=== PATIENT | male | born 1940 | race Two or more races ===

== ENCOUNTER 2019-06-07 16:43 | Inpatient (IN) | payer BC, MEDICAID ==
[~2019-06-07] VITALS: Ht 165.1 cm; Wt 74.8 kg
[2019-06-07] MEDS ORDERED: ALBUTEROL SULF 2.5 MG/0.5ML(0.5%) NEB SOLN HHN ONE (17:00)
[2019-06-07] MEDS ORDERED: IPRATROPIUM BROM 0.5 MG/2.5ML INH SOL HHN ONE (17:00)
[2019-06-07] MEDS ORDERED: methylPREDNISolone SOD SUCC 125 MG/2 ML VL IV ONE (17:00)
[2019-06-07 18:54] LABS: Basophils # (auto) 0 10 ^3/uL (0-0.2); Basophils % (auto) 0.4 % (0.0-2.0); Eosinophils # (auto) 0.2 10 ^3/uL (0-0.8); Eosinophils % (auto) 2.3 % (0.0-7.0); Hematocrit 43.5 % (41.0-53.0); Hemoglobin 14.8 g/dL (13.5-17.5); Lymphocytes # (auto) 3.3 10 ^3/uL (0.4-5.4); Lymphocytes % (auto) 34.8 % (10.0-50.0); Mean Corpuscular Hemoglobin 30.3 pg (28.0-32.0); Mean Corpuscular Volume 89.1 fL (80.0-100.0); Monocytes # (auto) 0.6 10 ^3/uL (0-1.3); Monocytes % (auto) 5.9 % (0.0-12.0); Neutrophils # (auto) 5.4 10 ^3/uL (1.6-8.6); Neutrophils % (auto) 56.6 % (37.0-80.0); Nucleated Red Blood Cells % 0.1 %; Platelet Count (auto) 220 10^3/uL (140-450); Red Blood Cells 4.88 10^6/uL (4.5-5.90); Red Cell Distribution Width 15.1 % (11.8-14.3); White Blood Cell 9.5 10^3/uL (4.4-10.8)
[2019-06-07] MEDS ORDERED: FUROSEMIDE 40 MG/4 ML VIAL IV ONE (19:00)
[2019-06-07] MEDS ORDERED: NITROGLYCERIN 2% OINT 1GM PKG TD ONE (19:00)
[2019-06-07] MEDS ORDERED: CARVEDILOL 3.125 MG TAB PO ONE (19:00)
[2019-06-07] MEDS ORDERED: ENALAPRILAT 1.25 MG/ML-1ML VIAL IV ONE (19:00)
[2019-06-07 19:08] LABS: Alanine Aminotransferase 17 U/L (16-61); Albumin 3.4 g/dL (3.4-5.0); Anion Gap 6 (5-15); Aspartate Aminotransferase 14 U/L (15-37); BUN/Creatinine Ratio 13.7; Blood Urea Nitrogen 13 mg/dL (7-18); Calcium 9.2 mg/dL (8.5-10.1); Carbon Dioxide 27 mmol/L (21-32); Chloride 105 mmol/L (98-107); GFR African American 99 mL/min; GFR Non-African American 82 mL/min; Glucose 101 mg/dL (74-106); Potassium 3.6 mmol/L (3.5-5.1); Sodium 138 mmol/L (136-145)
[2019-06-07 19:14] LABS: Lactic Acid w/Reflex 2.3 mmol/L (0.4-2.0)
[2019-06-07 19:16] LABS: Alkaline Phosphatase 115 U/L (45-117)
[2019-06-07 19:17] LABS: Total Protein 7.6 g/dL (6.4-8.2)
[2019-06-07] MEDS ORDERED: DEXTROSE (50%) 50ML SYRG IV PRN ×2 (20:15)
[2019-06-07] MEDS ORDERED: NITROGLYCERIN 0.4 MG SL TAB SL PRN (20:15)
[2019-06-07] MEDS ORDERED: PROMETHAZINE HCL 25 MG/ML 1ML IV PRN (20:15)
[2019-06-07] MEDS ORDERED: LACTULOSE 20Gm/30ML SOLN PO PRN (20:15)
[2019-06-07] MEDS ORDERED: ALBUTEROL SULF 2.5 MG/0.5ML(0.5%) NEB SOLN NEB PRN (20:15)
[2019-06-07] MEDS ORDERED: MORPHINE SULF INJ 2 MG/ML SYRINGE 1ML IV PRN (20:15)
[2019-06-07 20:32] VITALS: BP 148/70
[2019-06-07] MEDS ORDERED: IOHEXOL 350 MG/ML 100ML IJ ONE (20:37)
[2019-06-07] MEDS: ACCU-CHEK COMFORT CURVE STRIP VI SCH (22:00)
[2019-06-07] MEDS: InsuLIN REG 1unit/0.01ml Soln (100units/ml) SC SCH (22:00)
[2019-06-07 22:17] LABS: Urine Bacteria MOD /hpf (None Seen); Urine Blood Negative /uL (Negative); Urine Specific Gravity 1.009 (1.001-1.035); Urine WBC 256 /hpf (0 - 3)
[2019-06-07] MEDS: methylPREDNISolone SOD SUCC 40 MG/ML VL IV SCH (22:23)
[2019-06-07] MEDS: DOXYCYCLINE 100MG/250ML 250 ML IV SCH (22:24)
[2019-06-07] MEDS: METOPROLOL TARTRATE 25 MG TAB PO SCH (22:35)
[2019-06-07] MEDS: ATORVASTATIN 20 MG TAB PO SCH (22:36)
[2019-06-07] MEDS: ENOXAPARIN SOD 80 MG/0.8ML SYRINGE SC SCH (22:36)
[2019-06-08] MEDS: IPRATROPIUM BROM 0.5 MG/2.5ML INH SOL NEB SCH ×4 (00:20→18:30)
[2019-06-08] MEDS: ALBUTEROL SULF 2.5 MG/0.5ML(0.5%) NEB SOLN NEB SCH ×4 (00:20→18:30)
--- NOTE | 2019-06-08 00:22 | NUR ---
RTN OTE PT WAS SEEN BY RT FOR SCHEDULED HHN TX IN THE ER. PT TOLERATES WELL VIA MOUTHPIECE. NO ADVERSE REACTION NOTED. CONT ORDERED Addendum: 06/08/19 at 0023 by Carmina Thornton RT Amended: Links added.
[2019-06-08 03:00] LABS: Basophils # (auto) 0.1 10 ^3/uL (0-0.2); Basophils % (auto) 0.7 % (0.0-2.0); Eosinophils # (auto) 0 10 ^3/uL (0-0.8); Eosinophils % (auto) 0.1 % (0.0-7.0); Hemoglobin 14.5 g/dL (13.5-17.5); Lymphocytes # (auto) 0.7 10 ^3/uL (0.4-5.4); Lymphocytes % (auto) 8.5 % (10.0-50.0); Mean Corpuscular Hemoglobin 29.9 pg (28.0-32.0); Mean Corpuscular Hgb Conc. 33.7 g/dL (32.0-36.0); Mean Corpuscular Volume 88.7 fL (80.0-100.0); Monocytes # (auto) 0.1 10 ^3/uL (0-1.3); Monocytes % (auto) 0.7 % (0.0-12.0); Neutrophils # (auto) 7.4 10 ^3/uL (1.6-8.6); Nucleated Red Blood Cells % 0.1 %; Platelet Count (auto) 242 10^3/uL (140-450); Red Blood Cells 4.84 10^6/uL (4.5-5.90); Red Cell Distribution Width 14.9 % (11.8-14.3); White Blood Cell 8.2 10^3/uL (4.4-10.8)
[2019-06-08 03:17] LABS: Albumin 3.3 g/dL (3.4-5.0); Calcium 9.1 mg/dL (8.5-10.1); Potassium 4.3 mmol/L (3.5-5.1)
[2019-06-08 03:22] LABS: Total Protein 7.8 g/dL (6.4-8.2)
[2019-06-08] MEDS: ACCU-CHEK COMFORT CURVE STRIP VI SCH ×4 (07:53→22:30)
[2019-06-08] MEDS: InsuLIN REG 1unit/0.01ml Soln (100units/ml) SC SCH ×4 (07:58→22:00)
[2019-06-08] MEDS: methylPREDNISolone SOD SUCC 40 MG/ML VL IV SCH (09:28)
[2019-06-08] MEDS: DOXYCYCLINE 100MG/250ML 250 ML IV SCH ×2 (09:31→22:35)
[2019-06-08] MEDS: METOPROLOL TARTRATE 25 MG TAB PO SCH ×2 (10:16→22:29)
[2019-06-08] MEDS: ASPirin 81 mg TAB PO SCH (10:16)
[2019-06-08] MEDS: ENOXAPARIN SOD 80 MG/0.8ML SYRINGE SC SCH ×2 (10:18→22:30)
[2019-06-08] MEDS: ENALAPRIL MALEATE 10 MG TAB PO SCH (10:18)
[2019-06-08] MEDS ORDERED: CARVEDILOL 3.125 MG TAB PO ONE (11:15)
[2019-06-08] MEDS ORDERED: amLODIPine BESYLATE 5 MG TAB PO ONE (11:15)
[2019-06-08] MEDS ORDERED: ATORVASTATIN 20 MG TAB PO ONE (13:15)
[2019-06-08] MEDS ORDERED: ASPirin 81 mg TAB PO ONE (13:15)
[2019-06-08] MEDS ORDERED: CLOPIDOGREL BISULFATE 75 MG TAB PO ONE ×3 (13:15→16:00)
--- NOTE | 2019-06-08 14:50 | NUR ---
PATIENT ARRIVED ON UNIT. NO S/S OF DISTRESS NOTED AT THIS TIME. PATIENT ON TELE BOX 61. PATIENT DENIES ANY PAIN. PATIENT IN BED INSTRUCTED ON USE OF CALL LIGHT AND HOSPITAL POLICY. PATIENT HAS PATENT LWRIST 20 GAUGE. UPDATED ON POC. ALL QUESTIONS ANSWERED. BED IN LOWEST LOCKED POSITION WITH CALL LIGHT WITHIN REACH.
[2019-06-08 15:14] VITALS: BP 162/93
[2019-06-08] MEDS ORDERED: METF-370 PO (15:26)
--- NOTE | 2019-06-08 16:30 | NUR ---
SPOKE TO Ludmila TORRES IN CARDIOLOGY REGARDING TROPONIN LEVELS. STATED HE WOULD SEE THE PATIENT.
[2019-06-08 17:00] VITALS: BP 126/69
--- NOTE | 2019-06-08 20:20 | NUR ---
Opening Shift Note Pt is resting in bed with eyes closed and resp rate is even and unlabored. Will continue to monitor pt and when awake will discuss POC. Bed is low, wheels are locked, and call light is with in reach.
[2019-06-08 21:51] VITALS: BP 120/54
[2019-06-08] MEDS ORDERED: CARVEDILOL 3.125 MG TAB PO SCH (22:00)
--- NOTE | 2019-06-08 22:25 | NUR ---
Pt is awake and alert x4 and POC discussed with pt and pt verbalizes understanding. Pt also up OOB to BR and amb with cane and noted to have a limp but is steady. Pt given urinal at bedside for future use prn and verbalizes understanding of its use. Call light is with in reach and pt instructed to call prn or with any questions or concerns.
[2019-06-08] MEDS: ATORVASTATIN 20 MG TAB PO SCH (22:28)
[2019-06-09] VITALS (7 sets, daily range): BP systolic 115–154; BP diastolic 52–94
[2019-06-09] MEDS: ALBUTEROL SULF 2.5 MG/0.5ML(0.5%) NEB SOLN NEB SCH ×5 (00:15→23:46)
[2019-06-09] MEDS: IPRATROPIUM BROM 0.5 MG/2.5ML INH SOL NEB SCH ×5 (00:15→23:46)
--- NOTE | 2019-06-09 02:15 | NUR ---
Dr Laughlin called at this time to discuss pt POC and new orders received at this time. See written orders for, troponin levels q 8hrs x3, ( troponin levels until they peak) ,Adenosine Cardiolite stress test 06/11/19 and NPO after midnight 06/11/19, and FACUNDO MELGAR.
[2019-06-09 03:30] LABS: BUN/Creatinine Ratio 29.1; Calcium 8.8 mg/dL (8.5-10.1); Potassium 4.5 mmol/L (3.5-5.1)
[2019-06-09] MEDS: InsuLIN REG 1unit/0.01ml Soln (100units/ml) SC SCH ×4 (06:31→22:00)
[2019-06-09] MEDS: ACCU-CHEK COMFORT CURVE STRIP VI SCH ×4 (06:33→23:08)
[2019-06-09 07:20] LABS: Basophils # (auto) 0 10 ^3/uL (0-0.2); Basophils % (auto) 0.1 % (0.0-2.0); Eosinophils # (auto) 0 10 ^3/uL (0-0.8); Hematocrit 39.8 % (41.0-53.0); Hemoglobin 13.3 g/dL (13.5-17.5); Lymphocytes # (auto) 1.8 10 ^3/uL (0.4-5.4); Lymphocytes % (auto) 11.2 % (10.0-50.0); Mean Corpuscular Hemoglobin 29.7 pg (28.0-32.0); Mean Corpuscular Hgb Conc. 33.4 g/dL (32.0-36.0); Mean Corpuscular Volume 89.1 fL (80.0-100.0); Monocytes # (auto) 0.7 10 ^3/uL (0-1.3); Monocytes % (auto) 4.6 % (0.0-12.0); Neutrophils # (auto) 13.5 10 ^3/uL (1.6-8.6); Neutrophils % (auto) 84.1 % (37.0-80.0); Nucleated Red Blood Cells % 0.1 %; Platelet Count (auto) 222 10^3/uL (140-450); Red Blood Cells 4.46 10^6/uL (4.5-5.90); Red Cell Distribution Width 15.2 % (11.8-14.3)
--- NOTE | 2019-06-09 07:30 | NUR ---
Opening Shift Note Assumed care of patient, awake and alert. No S/S of distress/SOB or pain. Instructed on POC and to call for assist PRN, will continue to monitor for changes Q1hr and PRN. Bed locked in lowest position with two side rails up and call light in reach.
[2019-06-09] MEDS: DOXYCYCLINE 100MG/250ML 250 ML IV SCH (08:03)
[2019-06-09] MEDS: METOPROLOL TARTRATE 25 MG TAB PO SCH ×2 (10:12→23:06)
[2019-06-09] MEDS: ASPirin 81 mg TAB PO SCH (10:12)
[2019-06-09] MEDS: methylPREDNISolone SOD SUCC 40 MG/ML VL IV SCH (10:12)
[2019-06-09] MEDS: ENOXAPARIN SOD 80 MG/0.8ML SYRINGE SC SCH ×2 (10:12→23:08)
[2019-06-09] MEDS: amLODIPine BESYLATE 5 MG TAB PO SCH (10:13)
[2019-06-09] MEDS: ENALAPRIL MALEATE 10 MG TAB PO SCH (10:13)
--- NOTE | 2019-06-09 12:45 | NUR ---
DR MORENO ROUNDING
[2019-06-09] MEDS: NICOTINE 21MG/24 HR TOPICAL PATCH TD SCH (14:44)
--- NOTE | 2019-06-09 15:00 | NUR ---
URINE SAMPLE SENT ORDERED.
[2019-06-09] MEDS: ACETAMINOPHEN 500 MG TAB PO PRN (17:01)
--- NOTE | 2019-06-09 19:35 | NUR ---
Opening Shift Note Pt is sitting up in bed receiving a Neb tx at this time and RT is also at bedside. Pt denies any pain or SOB and no s/s of any distress noted at this time. POC discussed with pt and pt verbalizes understanding. Bed is low, wheels are locked, and call light is with in reach.
[2019-06-09] MEDS: ATORVASTATIN 20 MG TAB PO SCH (23:05)
[2019-06-09] MEDS: DOXYCYCLINE 100 MG TAB/CAP PO SCH (23:07)
[2019-06-10 05:38] VITALS: BP 151/87
[2019-06-10] MEDS: IPRATROPIUM BROM 0.5 MG/2.5ML INH SOL NEB SCH ×3 (06:08→19:14)
[2019-06-10] MEDS: ALBUTEROL SULF 2.5 MG/0.5ML(0.5%) NEB SOLN NEB SCH ×3 (06:08→19:14)
[2019-06-10] MEDS: InsuLIN REG 1unit/0.01ml Soln (100units/ml) SC SCH ×4 (06:14→22:16)
[2019-06-10] MEDS: ACCU-CHEK COMFORT CURVE STRIP VI SCH ×4 (06:15→22:17)
[2019-06-10 08:00] VITALS: BP 133/75
[2019-06-10 09:00] VITALS: BP 133/75
[2019-06-10] MEDS: methylPREDNISolone SOD SUCC 40 MG/ML VL IV SCH (10:04)
[2019-06-10] MEDS: ENOXAPARIN SOD 80 MG/0.8ML SYRINGE SC SCH ×2 (10:04→22:13)
[2019-06-10] MEDS: NICOTINE 21MG/24 HR TOPICAL PATCH TD SCH (10:04)
[2019-06-10] MEDS: amLODIPine BESYLATE 5 MG TAB PO SCH (10:05)
[2019-06-10] MEDS: ENALAPRIL MALEATE 10 MG TAB PO SCH (10:05)
[2019-06-10] MEDS: ASPirin 81 mg TAB PO SCH (10:05)
[2019-06-10] MEDS: METOPROLOL TARTRATE 25 MG TAB PO SCH ×2 (10:05→22:00)
[2019-06-10] MEDS: DOXYCYCLINE 100 MG TAB/CAP PO SCH ×2 (10:05→22:13)
[2019-06-10 13:00] VITALS: BP 143/75
[2019-06-10 17:00] VITALS: BP 149/72
--- NOTE | 2019-06-10 19:20 | NUR ---
OPENING NOTE- NOC SHIFT PATIENT IS ALERT AND ORIENTED X4, ANSWERS IN COMPLETE SENTENCES AND MAKES APPROPRIATE EYE CONTACT. PATIENT'S PRIMARY LANGUAGE IS SCOTTISH. PATIENT IN BED, BED IS LOCKED AT LOWEST POSITION, BED RAILS UP X2 AND HEAD OF BED IS UP >30 DEGREES. BEDSIDE TABLE WITHIN REACH, CALL LIGHT WITHIN REACH. DISCUSSED POC WITH PATIENT AND INSTRUCTED PATIENT TO CALL PRN; PATIENT VERBALIZED UNDERSTANDING. WILL CONTINUE TO MONITOR Q1H AND PRN. PATIENT HAS PERSONAL CANE AT BEDSIDE.
[2019-06-10 22:00] VITALS: BP 138/81
[2019-06-10] MEDS: ATORVASTATIN 20 MG TAB PO SCH (22:14)
--- NOTE | 2019-06-10 22:15 | NUR ---
BLOOD PRESSURE MED HELD FOR CARDIOLITE STRESS TEST SCHEDULED FOR 06/10, MADE PATIENT AWARE.
[2019-06-11] VITALS (8 sets, daily range): BP systolic 138–163; BP diastolic 64–94
--- NOTE | 2019-06-11 | NUR ---
ROUNDS PATIENT RESTING EYES CLOSED. BREATHS ARE EVEN AND UNLABORED. NO S/SX OF DISTRESS, SOB OR PAIN.
[2019-06-11] MEDS: IPRATROPIUM BROM 0.5 MG/2.5ML INH SOL NEB SCH ×4 (00:44→18:23)
[2019-06-11] MEDS: ALBUTEROL SULF 2.5 MG/0.5ML(0.5%) NEB SOLN NEB SCH ×4 (00:44→18:23)
--- NOTE | 2019-06-11 02:00 | NUR ---
ROUNDS PATIENT COMFORTABLE IN BED. NO S/SX OF DISTRESS OR SOB. PATIENT DENIES PAIN AT THIS TIME.
[2019-06-11 06:02] LABS: Basophils # (auto) 0 10 ^3/uL (0-0.2); Basophils % (auto) 0.2 % (0.0-2.0); Eosinophils # (auto) 0 10 ^3/uL (0-0.8); Eosinophils % (auto) 0.1 % (0.0-7.0); Hematocrit 40.2 % (41.0-53.0); Hemoglobin 13.9 g/dL (13.5-17.5); Lymphocytes # (auto) 1.7 10 ^3/uL (0.4-5.4); Lymphocytes % (auto) 20.2 % (10.0-50.0); Mean Corpuscular Hemoglobin 30.7 pg (28.0-32.0); Mean Corpuscular Hgb Conc. 34.5 g/dL (32.0-36.0); Mean Corpuscular Volume 88.9 fL (80.0-100.0); Monocytes # (auto) 0.5 10 ^3/uL (0-1.3); Monocytes % (auto) 6.2 % (0.0-12.0); Neutrophils # (auto) 6.1 10 ^3/uL (1.6-8.6); Neutrophils % (auto) 73.3 % (37.0-80.0); Nucleated Red Blood Cells % 0.1 %; Platelet Count (auto) 200 10^3/uL (140-450); Red Blood Cells 4.52 10^6/uL (4.5-5.90); White Blood Cell 8.4 10^3/uL (4.4-10.8)
[2019-06-11 06:34] LABS: BUN/Creatinine Ratio 30.1; Calcium 9.1 mg/dL (8.5-10.1); Potassium 3.8 mmol/L (3.5-5.1)
[2019-06-11 06:54] LABS: Free T4 (Free Thyroxine) 0.6 ng/dL (0.89-1.76)
[2019-06-11] MEDS: InsuLIN REG 1unit/0.01ml Soln (100units/ml) SC SCH ×4 (07:00→22:34)
[2019-06-11] MEDS: ACCU-CHEK COMFORT CURVE STRIP VI SCH ×4 (07:04→22:35)
[2019-06-11] MEDS ORDERED: ADENOSINE 63 MG in GIVE UN-DILUTED 0 ML IV STA (08:21)
[2019-06-11] MEDS: ENOXAPARIN SOD 80 MG/0.8ML SYRINGE SC SCH ×2 (10:47→22:35)
[2019-06-11] MEDS: methylPREDNISolone SOD SUCC 40 MG/ML VL IV SCH (10:47)
[2019-06-11] MEDS: DOXYCYCLINE 100 MG TAB/CAP PO SCH ×2 (10:48→22:34)
[2019-06-11] MEDS: amLODIPine BESYLATE 5 MG TAB PO SCH (10:48)
[2019-06-11] MEDS: METOPROLOL TARTRATE 25 MG TAB PO SCH ×2 (10:48→22:36)
[2019-06-11] MEDS: NICOTINE 21MG/24 HR TOPICAL PATCH TD SCH (10:48)
[2019-06-11] MEDS: ENALAPRIL MALEATE 10 MG TAB PO SCH (10:49)
[2019-06-11] MEDS: ASPirin 81 mg TAB PO SCH (10:50)
--- NOTE | 2019-06-11 11:55 | NUR ---
DR SIGRID LEONG
--- NOTE | 2019-06-11 13:05 | NUR ---
DR LELIA LEONG. CAROTID DUPLEX ORDERS NO INTERVENTIONS AT THIS TIME.
--- NOTE | 2019-06-11 14:00 | NUR ---
CHECKED BP ON BOTH EXTREMITIES PER DR ROWELL LEFT ARM 111/58 HR 79 MAP 80 RIGHT ARM 133/71 HR 79 MAP 89
--- NOTE | 2019-06-11 16:10 | NUR ---
REMOVED O2 FROM PATIENT PER DR MATTA REQUEST. PATIENT SATURATION ON RA 94-95% NO SIGNS AND SYMPTOMS OF DISTRESS NOTED. O2 PROVIDED AT BEDSIDE WITH HUMIDIFIER PATIENT C/O DRY NOSE.
[2019-06-11] MEDS: ATORVASTATIN 20 MG TAB PO SCH (22:34)
[2019-06-12] MEDS: ALBUTEROL SULF 2.5 MG/0.5ML(0.5%) NEB SOLN NEB SCH ×4 (00:04→18:42)
[2019-06-12] MEDS: IPRATROPIUM BROM 0.5 MG/2.5ML INH SOL NEB SCH ×4 (00:04→18:43)
[2019-06-12] MEDS: ACETAMINOPHEN 500 MG TAB PO PRN ×2 (00:05→06:49)
[2019-06-12 05:00] VITALS: BP 156/85
[2019-06-12] MEDS: ACCU-CHEK COMFORT CURVE STRIP VI SCH ×4 (06:47→22:06)
[2019-06-12] MEDS: InsuLIN REG 1unit/0.01ml Soln (100units/ml) SC SCH ×4 (06:47→22:08)
[2019-06-12 08:00] VITALS: BP 139/74
--- NOTE | 2019-06-12 08:55 | NUR ---
FOOD AND NUTRITION SERVICES SUPERVISOR MILKA JARQUIN AT BEDSIDE UPDATING PATIENT ON POC. PATIENT VERBALIZED UNDERSTANDING.
[2019-06-12] MEDS: ENOXAPARIN SOD 80 MG/0.8ML SYRINGE SC SCH ×2 (10:01→22:06)
[2019-06-12] MEDS: amLODIPine BESYLATE 5 MG TAB PO SCH (10:02)
[2019-06-12] MEDS: ASPirin 81 mg TAB PO SCH (10:02)
[2019-06-12] MEDS: METOPROLOL TARTRATE 25 MG TAB PO SCH ×2 (10:02→22:05)
[2019-06-12] MEDS: NICOTINE 21MG/24 HR TOPICAL PATCH TD SCH (10:02)
[2019-06-12] MEDS: methylPREDNISolone SOD SUCC 40 MG/ML VL IV SCH (10:02)
[2019-06-12] MEDS: ENALAPRIL MALEATE 10 MG TAB PO SCH (10:03)
[2019-06-12] MEDS: DOXYCYCLINE 100 MG TAB/CAP PO SCH ×2 (10:03→22:05)
[2019-06-12 12:00] VITALS: BP 151/82
[2019-06-12 15:53] LABS: INR 1.11 (0.9-1.15); Partial Thromboplastin Time 34.7 sec (23.64-32.05)
[2019-06-12 16:57] VITALS: BP 126/72
[2019-06-12] MEDS: ATORVASTATIN 20 MG TAB PO SCH (22:05)
[2019-06-12 22:16] VITALS: BP 131/75
[2019-06-13] MEDS ORDERED: SODIUM CHLORIDE 0.9% 1,000 ML IV SCH (00:01)
[2019-06-13] MEDS: ALBUTEROL SULF 2.5 MG/0.5ML(0.5%) NEB SOLN NEB SCH ×5 (00:16→23:57)
[2019-06-13] MEDS: IPRATROPIUM BROM 0.5 MG/2.5ML INH SOL NEB SCH ×5 (00:16→23:57)
[2019-06-13 05:11] VITALS: BP 160/86
[2019-06-13 05:23] LABS: Basophils # (auto) 0 10 ^3/uL (0-0.2); Basophils % (auto) 0.1 % (0.0-2.0); Eosinophils # (auto) 0 10 ^3/uL (0-0.8); Eosinophils % (auto) 0.2 % (0.0-7.0); Hematocrit 42.3 % (41.0-53.0); Hemoglobin 14.1 g/dL (13.5-17.5); Lymphocytes # (auto) 2.1 10 ^3/uL (0.4-5.4); Mean Corpuscular Hemoglobin 29.9 pg (28.0-32.0); Mean Corpuscular Hgb Conc. 33.4 g/dL (32.0-36.0); Mean Corpuscular Volume 89.5 fL (80.0-100.0); Monocytes # (auto) 0.5 10 ^3/uL (0-1.3); Monocytes % (auto) 5.3 % (0.0-12.0); Neutrophils # (auto) 6.8 10 ^3/uL (1.6-8.6); Neutrophils % (auto) 72.4 % (37.0-80.0); Platelet Count (auto) 213 10^3/uL (140-450); Red Blood Cells 4.73 10^6/uL (4.5-5.90); Red Cell Distribution Width 15.4 % (11.8-14.3); White Blood Cell 9.5 10^3/uL (4.4-10.8)
[2019-06-13 05:37] LABS: INR 1.11 (0.9-1.15); Partial Thromboplastin Time 38.2 sec (23.64-32.05)
[2019-06-13 05:49] LABS: BUN/Creatinine Ratio 25.9; Calcium 9.2 mg/dL (8.5-10.1)
[2019-06-13] MEDS: InsuLIN REG 1unit/0.01ml Soln (100units/ml) SC SCH ×4 (06:21→22:00)
[2019-06-13] MEDS: ACCU-CHEK COMFORT CURVE STRIP VI SCH ×4 (06:22→22:01)
[2019-06-13 08:00] VITALS: BP 124/72
--- NOTE | 2019-06-13 08:00 | NUR ---
OPENING SHIFT NOTE ASSUMED CARE OF PATIENT AWAKE AND ALERT. NO S/S OF DISTRESS NOTED OR COMPLAINTS OF PAIN. PATIENT UPDATED ON POC FOR THE DAY AND ALL QUESTIONS ANSWERED. BED IS IN LOWEST, LOCKED POSITION WITH SIDE RAILS UP X2 AND CALL LIGHT WITHIN REACH. WILL CONTINUE TO MONITOR Q1H AND PRN.
--- NOTE | 2019-06-13 08:15 | NUR ---
PATIENT OFF UNIT RECEIVED CALL FROM GLASS CUT OFF SUPERVISOR ASKING FOR PATIENT TO BE BROUGHT DOWN. PATIENT TAKEN TO GLASS CUT OFF SUPERVISOR BY STAFF AND ACCOMPANIED BY FAMILY MEMBERS.
[2019-06-13] MEDS ORDERED: ANGIOMAX 250 MG VIAL IV ONE (08:44)
[2019-06-13] MEDS ORDERED: PHENYLEPHRINE HCL 10 MG/ML VL ONE (08:44)
[2019-06-13] MEDS ORDERED: GLYCOPYRROLATE 0.2 MG/ML 1ML VIAL ONE (08:44)
[2019-06-13] MEDS ORDERED: SODIUM CHL 0.9% 0 ML ONE (08:45)
[2019-06-13] MEDS ORDERED: DOPamine 1600MCG/ML D5W 0 ML IV ONE (08:45)
[2019-06-13] MEDS ORDERED: IODIXANOL 320MG/ML 100ML BTL IV ONE ×3 (08:45→09:45)
[2019-06-13] MEDS ORDERED: EPINEPHrine HCL 1 MG/10 ML SYRG ONE (08:52)
[2019-06-13] MEDS ORDERED: ATROPINE SULF 1 MG/10ml SYR ONE (08:52)
[2019-06-13] MEDS ORDERED: LIDOCAINE 2%HCL (LOCAL ANESTH.) INJ 20ML MDV ONE ×2 (08:55→09:30)
[2019-06-13] MEDS ORDERED: hydrALAZINE HCL 20 MG/ML VL ONE (09:48)
[2019-06-13] MEDS: ENOXAPARIN SOD 80 MG/0.8ML SYRINGE SC SCH ×2 (10:00→22:00)
[2019-06-13] MEDS: LOSARTAN POTASSIUM 50 MG TAB PO SCH (10:00)
[2019-06-13] MEDS ORDERED: LEVOTHYROXINE SODIUM 50 MCG TAB PO ONE (11:30)
--- NOTE | 2019-06-13 11:40 | NUR ---
RETURN TO UNIT PATIENT RETURNED TO UNIT AFTER REPORT RECEIVED. PATIENT HOOKED UP TO BEDSIDE OXYGEN AND OPERATIONS SUPERVISOR CHEMICAL CLEANING. NO S/S OF DISTRESS NOTED. BILATERAL GROIN CATH SITES ASSESSED. NO CLOSURE DEVICE WAS USED. SITES ARE SOFT WITH NO ACTIVE BLEEDING. PATIENT IS TO LAY FLAT FOR 6 HOURS. PATIENT AWARE HE CAN SIT UP AT 1630. POST CATH VITAL SIGNS ARE BP 130/61, HR 81, O2 ON 2L NC 97% AND TEMP OF 98.5. WILL CONTINUE TO MONITOR FREQUENTLY.
[2019-06-13] MEDS: MORPHINE SULF INJ 2 MG/ML SYRINGE 1ML IV PRN (11:47)
[2019-06-13] MEDS: methylPREDNISolone SOD SUCC 40 MG/ML VL IV SCH (11:47)
[2019-06-13] MEDS: METOPROLOL TARTRATE 25 MG TAB PO SCH ×2 (11:47→21:58)
[2019-06-13] MEDS: ASPirin 81 mg TAB PO SCH (11:48)
[2019-06-13] MEDS: NICOTINE 21MG/24 HR TOPICAL PATCH TD SCH (11:48)
[2019-06-13] MEDS: DOXYCYCLINE 100 MG TAB/CAP PO SCH ×2 (11:48→21:57)
[2019-06-13] MEDS: amLODIPine BESYLATE 5 MG TAB PO SCH (11:48)
[2019-06-13 12:00] VITALS: BP 130/61
--- NOTE | 2019-06-13 12:30 | NUR ---
Nutrition Assessment Notes Please refer to link for full assessment notes. Est energy needs: 2826-4580 kcals (23-25 kcal/kgBW) d/t age Est protein needs: 49-62 gms/day (1.0-1.1 gm/kgBW) d/t age Will continue to monitor and reassess prn. Addendum: 06/13/19 at [address] Amended: Links added.
--- NOTE | 2019-06-13 13:30 | NUR ---
RIGHT GROIN ACCESS SITE SMALL AMOUNT OF SANGUINOUS DRAINAGE NOTED ON DRESSING. AREA CIRCLED WITH MAKENNAIE. WILL CLOSELY MONITOR.
--- NOTE | 2019-06-13 13:50 | NUR ---
REASSESSMENT OF RIGHT GROIN DRESSING IS NOW MODERATELY SATURATED. OLD DRESSING REMOVED, MANUAL PRESSURE HELD TO SITE FOR 5 MINUTES AND NEW TRANSPARENT OCCLUSIVE DRESSING APPLIED. WILL CONTINUE TO MONITOR CLOSELY.
[2019-06-13 13:54] LABS: Albumin 3.6 g/dL (3.4-5.0); Bilirubin, Direct 0.5 mg/dL (0-0.2); Calcium 9.3 mg/dL (8.5-10.1); Potassium 4.3 mmol/L (3.5-5.1)
[2019-06-13 13:57] LABS: BUN/Creatinine Ratio 22.8; Bilirubin, Total 1.8 mg/dL (0.2-1.0); Total Protein 7.1 g/dL (6.4-8.2)
--- NOTE | 2019-06-13 14:45 | NUR ---
REASSESSMENT OF RIGHT GROIN DRESSING SHOWS NO DRAINAGE, SITE IS SOFT AND NONTENDER. WILL CONTINUE TO MONITOR.
--- NOTE | 2019-06-13 15:05 | NUR ---
assessment Patient is a 78 year old male who is alert and oriented. Patients cognitive abilities are intact. Prior to admission patient lived home with family and functioned independently. Patient informed me he is able to care for his own ADLs. Per patient he will return home to his prior living arrangements post discharge and family will transport him home. Patient has a cane for home use. Patient has no safety issues regarding returning home on discharge. Patients Post discharge needs to be determined prior to discharge. I informed patient he has a right to speak to a executive secretary social welfare regarding all care. I informed patient he has a right to participate in any and all discharge planning. Patient does not have a POA and advanced directive. I have offered patient information on POA and advanced directives. I informed the patient the advantages and benefits of having an Advanced Directive. Patient verbalized understanding and agreed to discharge plan. Addendum: 06/13/19 at 1507 by Karine ANN Amended: Links added.
[2019-06-13 16:51] VITALS: BP 103/63
--- NOTE | 2019-06-13 19:30 | NUR ---
Opening Shift Note Assumed care of patient, awake and alert. No S/S of distress/SOB or pain. Noted dressing on right groin with blood stained. Dressing on left groin dry and intact. Instructed on POC and to call for assist PRN, patient verbalized understanding, call light within reach, will continue to monitor for changes Q1hr and PRN.
[2019-06-13] MEDS: ATORVASTATIN 20 MG TAB PO SCH (21:57)
[2019-06-13 22:00] VITALS: BP 148/68
[2019-06-13 23:13] VITALS: BP 148/68
--- NOTE | 2019-06-14 01:20 | NUR ---
PT AWAKE ALERT ORIENTED X 4 AMBULATORY AND VISITING WITH FAMILY. NO C/O PAIN. VSS WITH CALL LIGHT IN REACH AND TWO SIDERAILS UP.
[2019-06-14 05:27] VITALS: BP 155/87
[2019-06-14] MEDS: InsuLIN REG 1unit/0.01ml Soln (100units/ml) SC SCH ×4 (06:19→20:52)
[2019-06-14] MEDS: ACCU-CHEK COMFORT CURVE STRIP VI SCH ×4 (06:19→21:01)
[2019-06-14] MEDS: LEVOTHYROXINE SODIUM 50 MCG TAB PO SCH (06:20)
[2019-06-14] MEDS: IPRATROPIUM BROM 0.5 MG/2.5ML INH SOL NEB SCH ×3 (06:26→18:39)
[2019-06-14] MEDS: ALBUTEROL SULF 2.5 MG/0.5ML(0.5%) NEB SOLN NEB SCH ×3 (06:26→18:39)
[2019-06-14 06:27] LABS: Basophils # (auto) 0 10 ^3/uL (0-0.2); Basophils % (auto) 0.2 % (0.0-2.0); Eosinophils # (auto) 0 10 ^3/uL (0-0.8); Hematocrit 44.5 % (41.0-53.0); Hemoglobin 14.7 g/dL (13.5-17.5); Lymphocytes % (auto) 15.5 % (10.0-50.0); Mean Corpuscular Hemoglobin 29.9 pg (28.0-32.0); Mean Corpuscular Hgb Conc. 33.1 g/dL (32.0-36.0); Mean Corpuscular Volume 90.2 fL (80.0-100.0); Monocytes # (auto) 0.7 10 ^3/uL (0-1.3); Monocytes % (auto) 5.6 % (0.0-12.0); Neutrophils # (auto) 9.9 10 ^3/uL (1.6-8.6); Neutrophils % (auto) 78.7 % (37.0-80.0); Platelet Count (auto) 241 10^3/uL (140-450); Red Blood Cells 4.93 10^6/uL (4.5-5.90); Red Cell Distribution Width 15.2 % (11.8-14.3); White Blood Cell 12.7 10^3/uL (4.4-10.8)
[2019-06-14 06:47] LABS: BUN/Creatinine Ratio 29.5; Calcium 9.2 mg/dL (8.5-10.1); Potassium 3.8 mmol/L (3.5-5.1)
[2019-06-14 08:59] VITALS: BP 146/72
[2019-06-14] MEDS ORDERED: ENOXAPARIN SOD 40 MG/0.4 ML SYRINGE SC ONE (10:15)
[2019-06-14] MEDS: ASPirin 81 mg TAB PO SCH (10:31)
[2019-06-14] MEDS: methylPREDNISolone SOD SUCC 40 MG/ML VL IV SCH (10:31)
[2019-06-14] MEDS: LOSARTAN POTASSIUM 50 MG TAB PO SCH (10:32)
[2019-06-14] MEDS: METOPROLOL TARTRATE 25 MG TAB PO SCH ×2 (10:32→22:14)
[2019-06-14] MEDS: DOXYCYCLINE 100 MG TAB/CAP PO SCH ×2 (10:33→21:01)
[2019-06-14] MEDS: amLODIPine BESYLATE 5 MG TAB PO SCH (10:33)
[2019-06-14] MEDS: NICOTINE 21MG/24 HR TOPICAL PATCH TD SCH (10:33)
--- NOTE | 2019-06-14 10:45 | NUR ---
I faxed higher level of care order/clinical packet to [facility].
[2019-06-14 11:08] LABS: Hepatitis A Ab IgM Negative; Hepatitis B Core IgM Negative; Hepatitis B Surface Antigen Negative (Negative); Hepatitis C Antibody Negative (Negative)
[2019-06-14 13:00] VITALS: BP 130/70
--- NOTE | 2019-06-14 15:49 | NUR ---
1545 06/14/19 I contacted [facility] [phone] option 1 and spoke with Pool Attendant Xiomara regarding need to transfer patient to higher level of care. I faxed the transfer order and transfer packet to [facility] per her request. Per Xiomara she will present the information to her medical transport specialist for approval and will give me a call back.
[2019-06-14 17:05] VITALS: BP 118/70
[2019-06-14 20:00] VITALS: BP 130/70
[2019-06-14] MEDS: ATORVASTATIN 20 MG TAB PO SCH (21:00)
[2019-06-14] MEDS: TEMAZEPAM 15 MG CAP PO PRN (21:02)
[2019-06-14] MEDS: ACETAMINOPHEN 500 MG TAB PO PRN (21:03)
[2019-06-14 22:20] VITALS: BP 129/78
[2019-06-15] VITALS (7 sets, daily range): BP systolic 124–149; BP diastolic 66–89
[2019-06-15] MEDS: IPRATROPIUM BROM 0.5 MG/2.5ML INH SOL NEB SCH ×4 (00:09→19:06)
[2019-06-15] MEDS: ALBUTEROL SULF 2.5 MG/0.5ML(0.5%) NEB SOLN NEB SCH ×4 (00:09→19:06)
[2019-06-15] MEDS: InsuLIN REG 1unit/0.01ml Soln (100units/ml) SC SCH ×4 (05:57→22:00)
[2019-06-15] MEDS: ACCU-CHEK COMFORT CURVE STRIP VI SCH ×4 (05:57→23:11)
[2019-06-15] MEDS: LEVOTHYROXINE SODIUM 50 MCG TAB PO SCH (06:22)
--- NOTE | 2019-06-15 08:51 | NUR ---
I called [facility] [phone] option 1 and left message for Preconstruction Manager Xiomara asking for an update on authorization for the transfer of this patient to higher level of care.
[2019-06-15] MEDS: DOXYCYCLINE 100 MG TAB/CAP PO SCH ×2 (10:53→22:15)
[2019-06-15] MEDS: ENOXAPARIN SOD 40 MG/0.4 ML SYRINGE SC SCH (10:53)
[2019-06-15] MEDS: amLODIPine BESYLATE 5 MG TAB PO SCH (10:54)
[2019-06-15] MEDS: METOPROLOL TARTRATE 25 MG TAB PO SCH ×2 (10:54→22:15)
[2019-06-15] MEDS: NICOTINE 21MG/24 HR TOPICAL PATCH TD SCH (10:54)
[2019-06-15] MEDS: ASPirin 81 mg TAB PO SCH (10:55)
[2019-06-15] MEDS: LOSARTAN POTASSIUM 50 MG TAB PO SCH (10:55)
--- NOTE | 2019-06-15 12:45 | NUR ---
Paged Kelsey Mcdonnell RN for update regarding patients transfer.
--- NOTE | 2019-06-15 15:40 | NUR ---
I called Xiomara with [facility] [phone] extension [phone] to request contracted facilities for transfer to higher level of care. Per Xiomara they are working on an RASHAD with [facility]. Per Xiomara, they are contracted with [facility] (phone [phone]) and [facility] (phone number [phone]). Xiomara provided me with the following authorization numbers-for facility [id number] and the authorization for [facility] is [id number]. Per Renu will be head insulation board saw operator this weekend for [facility] [phone] extension [phone].
--- NOTE | 2019-06-15 15:49 | NUR ---
I called [facility] [phone] and spoke with Saige-she said they are working on the RASHAD with [facility]-they are also still working on connecting their home administrator with Dr. Chawla-they called and left him a message.
--- NOTE | 2019-06-15 15:50 | NUR ---
I called [facility] [phone] and left message for clearing house clerk asking about bed availability.
--- NOTE | 2019-06-15 15:56 | NUR ---
I called [facility] ([phone]) and spoke with Luigi-placed [facility] on will call pending transfer to higher level of care.
--- NOTE | 2019-06-15 19:25 | NUR ---
Opening Shift Note: Assumed care of patient, patient is sitting at the side of the bed leaning over complaining of shortness of breath, 2 L NC applied, patient says they are feeling relief from SOB and there is no longer any S/S of distress. Patient denies pain at this time. Bed is low, locked, with one side rail raised, and call santacruz is within reach. Patient is awake, alert and oriented X 4. Patient is connected to telemetry box #61 with sinus rhythm at 83 bpm and Bundle Branch Block. Instructed on POC and to call for assist PRN, will continue to monitor for changes Q1hr and PRN.
[2019-06-15] MEDS: MORPHINE SULF INJ 2 MG/ML SYRINGE 1ML IV PRN (22:14)
[2019-06-15] MEDS: TEMAZEPAM 15 MG CAP PO PRN (22:14)
[2019-06-15] MEDS: ATORVASTATIN 20 MG TAB PO SCH (22:15)
[2019-06-16 04:30] VITALS: BP 121/82
[2019-06-16 05:56] LABS: Basophils # (auto) 0 10 ^3/uL (0-0.2); Basophils % (auto) 0.3 % (0.0-2.0); Eosinophils # (auto) 0.2 10 ^3/uL (0-0.8); Eosinophils % (auto) 2.1 % (0.0-7.0); Hemoglobin 13.7 g/dL (13.5-17.5); Lymphocytes # (auto) 2.3 10 ^3/uL (0.4-5.4); Lymphocytes % (auto) 25.1 % (10.0-50.0); Mean Corpuscular Hemoglobin 30.2 pg (28.0-32.0); Mean Corpuscular Hgb Conc. 33.6 g/dL (32.0-36.0); Mean Corpuscular Volume 90.1 fL (80.0-100.0); Monocytes # (auto) 0.6 10 ^3/uL (0-1.3); Monocytes % (auto) 6.3 % (0.0-12.0); Neutrophils % (auto) 66.2 % (37.0-80.0); Platelet Count (auto) 173 10^3/uL (140-450); Red Blood Cells 4.55 10^6/uL (4.5-5.90); Red Cell Distribution Width 15.8 % (11.8-14.3); White Blood Cell 9.1 10^3/uL (4.4-10.8)
[2019-06-16] MEDS: IPRATROPIUM BROM 0.5 MG/2.5ML INH SOL NEB SCH ×4 (06:07→19:20)
[2019-06-16] MEDS: ALBUTEROL SULF 2.5 MG/0.5ML(0.5%) NEB SOLN NEB SCH ×4 (06:07→19:20)
[2019-06-16] MEDS: LEVOTHYROXINE SODIUM 50 MCG TAB PO SCH (06:14)
[2019-06-16] MEDS: ACCU-CHEK COMFORT CURVE STRIP VI SCH ×4 (06:26→22:09)
[2019-06-16] MEDS: InsuLIN REG 1unit/0.01ml Soln (100units/ml) SC SCH ×4 (06:26→22:00)
[2019-06-16 06:49] LABS: Calcium 8.8 mg/dL (8.5-10.1); Potassium 3.8 mmol/L (3.5-5.1)
[2019-06-16 08:00] VITALS: BP 128/74
[2019-06-16] MEDS: METOPROLOL TARTRATE 25 MG TAB PO SCH ×2 (09:46→22:08)
[2019-06-16] MEDS: ASPirin 81 mg TAB PO SCH (09:47)
[2019-06-16] MEDS: amLODIPine BESYLATE 5 MG TAB PO SCH (09:47)
[2019-06-16] MEDS: ENOXAPARIN SOD 40 MG/0.4 ML SYRINGE SC SCH (09:48)
[2019-06-16] MEDS: LOSARTAN POTASSIUM 50 MG TAB PO SCH (09:48)
[2019-06-16] MEDS: DOXYCYCLINE 100 MG TAB/CAP PO SCH ×2 (09:48→22:09)
[2019-06-16] MEDS: NICOTINE 21MG/24 HR TOPICAL PATCH TD SCH (09:49)
--- NOTE | 2019-06-16 12:30 | NUR ---
Hospitalist Rounding Dr. Hobson at bedside. Family members in attendance.
[2019-06-16 13:00] VITALS: BP 130/63
--- NOTE | 2019-06-16 13:49 | NUR ---
Modular Home Crew Member Rounding Dr. Hicks at bedside. Orders received for portable chest x-ray.
[2019-06-16 17:00] VITALS: BP 126/60
--- NOTE | 2019-06-16 19:25 | NUR ---
Opening Shift Note Received report from Nuris RANKIN. Assumed care of patient, awake and alert. No S/S of distress/SOB or pain. Instructed on POC and to call for assist PRN. Fall precaution measures in place,will continue to monitor for changes Q1hr and PRN.
[2019-06-16 19:49] VITALS: BP 126/60
[2019-06-16 20:00] VITALS: BP 128/55
[2019-06-16] MEDS: ATORVASTATIN 20 MG TAB PO SCH (22:08)
[2019-06-16] MEDS: traMADol HCL 50 MG TAB PO PRN (22:12)
[2019-06-17] MEDS: ALBUTEROL SULF 2.5 MG/0.5ML(0.5%) NEB SOLN NEB SCH ×5 (00:33→23:41)
[2019-06-17] MEDS: IPRATROPIUM BROM 0.5 MG/2.5ML INH SOL NEB SCH ×5 (00:34→23:41)
--- NOTE | 2019-06-17 01:45 | NUR ---
Call from [facility], spoke with Ese. Per Ese, patient's accepting MD is Dr. Bulmaro Baker, CT Surgeon. No bed available yet, as he is awaiting for the Letter of Agreement from the hospital. Will endorse to dayshift RN.
[2019-06-17 05:00] VITALS: BP 118/52
[2019-06-17] MEDS: LEVOTHYROXINE SODIUM 50 MCG TAB PO SCH (06:54)
[2019-06-17] MEDS: InsuLIN REG 1unit/0.01ml Soln (100units/ml) SC SCH ×4 (06:54→21:59)
[2019-06-17] MEDS: ACCU-CHEK COMFORT CURVE STRIP VI SCH ×4 (06:54→21:59)
--- NOTE | 2019-06-17 07:40 | NUR ---
Opening Shift Note Assumed care of patient, asleep laying in bed. No S/S of distress/SOB or pain. O2 in progress on 2L. Will follow up with instructions on POC and to call for assist PRN. Will continue to monitor for changes Q1hr and PRN.
--- NOTE | 2019-06-17 07:55 | NUR ---
Rounding Patient awake sitting up in bed eating breakfast. Instructed on POC and to call for assist as needed. Call light placed within reach.
[2019-06-17 08:24] VITALS: BP 107/53
[2019-06-17] MEDS: amLODIPine BESYLATE 5 MG TAB PO SCH (10:00)
[2019-06-17] MEDS: LOSARTAN POTASSIUM 50 MG TAB PO SCH (10:00)
[2019-06-17] MEDS: METOPROLOL TARTRATE 25 MG TAB PO SCH ×2 (10:04→21:59)
[2019-06-17] MEDS: ENOXAPARIN SOD 40 MG/0.4 ML SYRINGE SC SCH (10:05)
[2019-06-17] MEDS: ASPirin 81 mg TAB PO SCH (10:05)
[2019-06-17] MEDS: DOXYCYCLINE 100 MG TAB/CAP PO SCH ×2 (10:05→21:59)
[2019-06-17] MEDS: NICOTINE 21MG/24 HR TOPICAL PATCH TD SCH (10:06)
[2019-06-17 13:00] VITALS: BP 123/61
--- NOTE | 2019-06-17 14:38 | NUR ---
Return Agreement and Patient Acknowledgement Form Return Agreement and Patient Acknowledgement Form completed and faxed back to [facility].
--- NOTE | 2019-06-17 14:46 | NUR ---
[facility] Transfer for 06/18/2019 Called [facility] ([phone]) to give report. Spoke with Ivanna campuzano RN. She notified me that they are requesting that the patient be transferred in the AM as no one is available to admit the patient after 6:00pm. Tentative bed number is 12-1. Addendum: 06/17/19 at 1726 by JOSEE ELIZABETH RN Time is [id number]
--- NOTE | 2019-06-17 16:40 | NUR ---
Acute Care Transfer Spoke with Brisa from transfer center, patient is accepted to unit 7100. However no bed number is assigned. Phone number received to call in report [phone].
[2019-06-17 16:44] VITALS: BP 128/64
--- NOTE | 2019-06-17 16:45 | NUR ---
Patient and family members were notified that [facility] accepted patient and transfer is pending. Will update them with time of transfer when available.
--- NOTE | 2019-06-17 16:50 | NUR ---
Patient and spouse was notified that transfer will be in the morning 06/18/2019.
--- NOTE | 2019-06-17 19:15 | NUR ---
Opening Shift Note Received report from Nuris RANKIN. Assumed care of patient, awake and alert. No S/S of distress/SOB or pain. Instructed on POC and to call for assist PRN, will continue to monitor for changes Q1hr and PRN.
[2019-06-17] MEDS: ATORVASTATIN 20 MG TAB PO SCH (21:59)
[2019-06-17] MEDS: traMADol HCL 50 MG TAB PO PRN (22:03)
[2019-06-17 22:10] VITALS: BP 100/62
[2019-06-18 05:00] VITALS: BP 102/57
[2019-06-18] MEDS: IPRATROPIUM BROM 0.5 MG/2.5ML INH SOL NEB SCH (06:22)
[2019-06-18] MEDS: ALBUTEROL SULF 2.5 MG/0.5ML(0.5%) NEB SOLN NEB SCH (06:22)
[2019-06-18] MEDS: InsuLIN REG 1unit/0.01ml Soln (100units/ml) SC SCH (06:37)
[2019-06-18] MEDS: ACCU-CHEK COMFORT CURVE STRIP VI SCH (06:37)
[2019-06-18] MEDS: LEVOTHYROXINE SODIUM 50 MCG TAB PO SCH (06:38)
[2019-06-18] MEDS: traMADol HCL 50 MG TAB PO PRN (06:38)
--- NOTE | 2019-06-18 07:27 | NUR ---
Call to [facility], they will picking table worker the patient at 0830.
[2019-06-18 07:30] VITALS: BP 100/57
--- NOTE | 2019-06-18 07:31 | NUR ---
Call to zachariah Rajput to inform of patient's transfer to [facility].
[2019-06-18] MEDS ORDERED: IODIXANOL 320MG/ML 100ML BTL IV ONE (07:39)
[2019-06-18] MEDS ORDERED: LIDOCAINE 2%HCL (LOCAL ANESTH.) INJ 20ML MDV ONE (07:39)
[2019-06-18] MEDS ORDERED: HEPARIN IN NS 1000Units/500mL 0 ML ONE (07:39)
--- NOTE | 2019-06-18 08:15 | NUR ---
Endorsed transfer to [facility].
== END 2019-06-18 08:45 | disposition short-term general hospital (02) | DRG 280 ==
LOC: ER 16:43 → OVERFLOW 16:44 → TELE-WESTW 06-08 14:50
PROVIDERS: ADMIT Internal Medicine; ATTEND Internal Medicine Nephrology
PROC: 4A023N7 Measurement of Cardiac Sampling and Pressure, Left Heart, Percutaneous Approach (ICD-10-PCS; principal; 2019-06-13)
PROC: B2111ZZ Fluoroscopy of Multiple Coronary Arteries using Low Osmolar Contrast (ICD-10-PCS; 2019-06-13)
PROC: B2151ZZ Fluoroscopy of Left Heart using Low Osmolar Contrast (ICD-10-PCS; 2019-06-13)
PROC: 4A033BC Measurement of Arterial Pressure, Coronary, Percutaneous Approach (ICD-10-PCS; 2019-06-13)
PROC: B41D1ZZ Fluoroscopy of Aorta and Bilateral Lower Extremity Arteries using Low Osmolar Contrast (ICD-10-PCS; 2019-06-13)
DX: I21.4 Non-ST elevation (NSTEMI) myocardial infarction (principal); J96.01 Acute respiratory failure with hypoxia; I16.1 Hypertensive emergency; J44.1 Chronic obstructive pulmonary disease with (acute) exacerbation; I50.32 Chronic diastolic (congestive) heart failure; B19.9 Unspecified viral hepatitis without hepatic coma; E78.5 Hyperlipidemia, unspecified; I11.0 Hypertensive heart disease with heart failure; N40.0 Benign prostatic hyperplasia without lower urinary tract symptoms; I70.8 Atherosclerosis of other arteries; K74.60 Unspecified cirrhosis of liver; E27.8 Other specified disorders of adrenal gland; E11.51 Type 2 diabetes mellitus with diabetic peripheral angiopathy without gangrene; I65.23 Occlusion and stenosis of bilateral carotid arteries; D17.9 Benign lipomatous neoplasm, unspecified; D72.829 Elevated white blood cell count, unspecified; G89.29 Other chronic pain; F17.210 Nicotine dependence, cigarettes, uncomplicated; I25.84 Coronary atherosclerosis due to calcified coronary lesion; M25.561 Pain in right knee; I25.10 Atherosclerotic heart disease of native coronary artery without angina pectoris; Z83.3 Family history of diabetes mellitus
CPT/HCPCS: 0523T; 75625; 75716; 76499; 93458; 93571; 93799; 96365; 96375; 99285; 36415; 36600; 71045; 71275; 76536; 76705; 78452; 80048; 80053; 80061; 80074; 80076; 81001; 82550; 82805; 82962; 83036; 83605; 83880; 84439; 84443; 84481; 84484; 85025; 85379; 85576; 85610; 85652; 85730; 86141; 86850; 86900; 86901; 87040; 87086; 87804; 93005; 93017; 93306; 93886; 93930; 93970; 94640; 94644; 99152; G0378; J0153; J1815; J3490; Q9967